=== PATIENT | female | born 1995 ===

== ENCOUNTER 2019-01-28 15:07 | Outpatient (CLI) | payer OTHER | END 2019-01-28 15:08 | disposition home or self-care (01) | LOC: RAD 15:07 | DX: R05 Cough (principal) ==

== ENCOUNTER 2020-06-15 08:00 | Outpatient (CLI) | payer OTHER | END 2020-06-15 15:00 | disposition home or self-care (01) | LOC: PPH VACUNA 08:00 | DX: Z23 Encounter for immunization (principal) ==